=== PATIENT | female | born 1980 | race Caucasian/White ===

== ENCOUNTER 2023-10-04 10:23 | Emergency (ER) | payer MEDICAID ==
[~2023-10-04] VITALS: Ht 152.4 cm; Wt 81.0 kg
[2023-10-04 10:35] VITALS: O2SAT 100
[2023-10-04] MEDS: KETOROLAC 60MG/2ML VIAL IM ONE (11:36)
[2023-10-04] MEDS ORDERED: IBUP-2029 MT (11:53)
[2023-10-04] MEDS ORDERED: CYCL10TA21 MT (11:53)
[2023-10-04 12:04] VITALS: BP 125/78; PULSE 60; RESP 17; TEMP 98.2
== END 2023-10-04 12:07 | disposition home or self-care (01) ==
LOC: ER 10:23
DX: R68.84 Jaw pain (principal); Z68.34 Body mass index [BMI] 34.0-34.9, adult
CPT/HCPCS: 99283; 81025; 96372; J1885

== ENCOUNTER 2023-10-21 00:09 | Emergency (ER) | payer MEDICAID ==
[~2023-10-21] VITALS: Ht 160 cm; Wt 77.2 kg
[~2023-10-21 00:09] MED LIST: CYCL10TA21 MT; IBUP-2029 MT
[2023-10-21 00:21] VITALS: O2SAT 98
[2023-10-21 00:43] LABS: BASOPHILS % 0.6 % (0.0-2.0); EOSINOPHILS % 0.9 % (0.0-5.0); HEMATOCRIT. 39.7 % (36.0-48.0); HEMOGLOBIN. 13.9 g/dL (12.0-16.0); LYMPHOCYTES % 13.5 % (20.0-50.0); MEAN CORPUSCULAR HEMOGLOBIN 31.4 pg (28.0-32.0); MEAN CORPUSCULAR HGB CONC 34.9 g/dL (31.0-37.0); MEAN CORPUSCULAR VOLUME 89.8 fL (81.0-99.0); MEAN PLATELET VOLUME 7.3 fl (7.4-10.4); MONOCYTES % 3.4 % (2.0-8.0); NEUTROPHILS % 81.6 % (40.0-76.0); PLATELET 311 x1000/uL (130-400); RED BLOOD CELL COUNT 4.42 mill/uL (4.2-5.4); RED CELL DISTRIBUTION WIDTH 13.5 % (11.6-14.6); WHITE BLOOD COUNT 10.9 x1000/uL (4.5-11.0)
[2023-10-21 00:55] LABS: CLARITY URINE CLOUDY (CLEAR); COLOR URINE YELLOW (YELLOW); GLUCOSE URINE NEGATIVE (NEGATIVE); KETONES URINE NEGATIVE (NEGATIVE); LEUKOCYTE ESTERASE URINE TRACE (NEGATIVE); NITRITE URINE POSITIVE (NEGATIVE); OCCULT BLOOD URINE NEGATIVE (NEGATIVE); PH URINE 7.5 (4.5-8.0); PROTEIN URINE NEGATIVE (NEGATIVE); SPECIFIC GRAVITY URINE 1.021 (1.005-1.030); UROBILINOGEN URINE 0.2 E.U./dL (0.2-1.0)
[2023-10-21 01:06] LABS: ALANINE AMINOTRANSFERASE 15 IU/L (10-49); ALBUMIN 4.5 g/dL (3.2-4.8); ASPARTATE AMINOTRANSFERASE 16 IU/L (<34); BILIRUBIN TOTAL 0.6 mg/dL (0.1-1.0); CALCIUM 8.9 mg/dL (8.7-10.4); CARBON DIOXIDE 22 mEq/L (21-32); CHLORIDE 106 mEq/L (98-107); CREATININE 0.7 mg/dL (0.6-1.0); GLUCOSE 136 mg/dL (70-105); PROTEIN TOTAL 7.6 g/dL (6.0-8.3); SODIUM 136 mEq/L (136-145); UREA NITROGEN BLOOD 10 mg/dL (9-23)
[2023-10-21 01:13] LABS: TROPONIN I HIGH SENSITIVITY < 4 ng/L (3.0-34)
[2023-10-21 01:34] LABS: HCG SCREEN NEGATIVE
[2023-10-21 05:43] LABS: RBC URINE 0-2 /hpf (0-2); SQUAMOUS EPITHELIAL CELL URINE FEW /lpf (RARE/1+)
[2023-10-21 05:44] LABS: BACTERIA URINE 4+
[2023-10-21] MEDS ORDERED: DICYCLOMINE 10 MG/5 ML ORAL SYR PO STA (08:35)
[2023-10-21] MEDS: DICYCLOMINE HCL 10MG CAPSULE PO NR (09:21)
[2023-10-21] MEDS: MAGNESIUM/ALUMINUM HYDROXIDE/SIMETHICONE 30ML UDC PO STA (09:22)
[2023-10-21] MEDS: KETOROLAC 60MG/2ML VIAL IM STA (09:22)
[2023-10-21] MEDS: ONDANSETRON 4MG ODT PO STA (09:25)
[2023-10-21] MEDS ORDERED: NITR-87 MT (10:42)
[2023-10-21 10:52] VITALS: BP 129/81; PULSE 60; RESP 18; TEMP 98.5
== END 2023-10-21 11:44 | disposition home or self-care (01) ==
LOC: ER 00:18
DX: K76.0 Fatty (change of) liver, not elsewhere classified (principal); N39.0 Urinary tract infection, site not specified
CPT/HCPCS: 80053; 81003; 81025; 84703; 83690; 85025; 84484; 36415; 76700; 93005; 96372; 99285; Q0162; J1885; Z7610